=== PATIENT | male | born 1975 | race African-American/Black ===

== ENCOUNTER 2018-06-22 06:36 | Inpatient (IN) | payer OTHER | END 2018-06-29 18:54 | disposition home health service (06) | LOC: JSAMEDAYSX 06:36 → J8W 06-25 18:58 → JICU 17:45 ==

== ENCOUNTER 2018-07-28 21:16 | Inpatient (IN) | payer OTHER | END 2018-07-30 14:18 | disposition home or self-care (01) | LOC: JERBED 23:02 → JER 21:16 → J8W 07-29 05:16 ==